=== PATIENT | male | born 1955 | race Caucasian/White ===

== ENCOUNTER → 2023-01-05 15:10 | Outpatient (BNVA) | payer MEDICARE, OTHER, SELFPAY | PROVIDERS: PCP Internal Medicine; Visit Provider Physician Assistant | DX: M54.42 Lumbago with sciatica, left side (principal) | CPT/HCPCS: 99212 ==

== ENCOUNTER 2023-10-11 14:45 | Outpatient (AMB) | payer MEDICARE, OTHER, SELFPAY ==
--- NOTE | 2023-10-11 15:13 | HO.SPINEOV ---
Intake Intake Visit Reasons: issues that will like to discuss Intake Note: Mr. Padilla is here today c/o ongoing pain. Lumber Carrier Operator Required: No Assessment & Plan Assessment & Plan (1) Back pain of lumbar region with sciatica: Code(s): M54.40 - Lumbago with sciatica, unspecified side Plan Mr Padilla is here today to follow-up. He has been having intermittent episodes of the burning pain along the left side of his foot. He is still able to go to the gym and walk for few miles a day. He gets on image seen at the gym which gives him a back massage that seems to give him almost total relief. He has been dealing with issues with bladder cancer and that has been giving him a significant amount of anxiety. Overall though, he seems to be doing well from the standpoint of his previous L5 laminotomy. His pain is really not affecting his quality of life it is more just an agitation that seems to give him anxiety. He does not have any weakness or numbness to report. He is going to go for a cortisone injection with Dr. Denson. We discussed the fact that he has a slight amount of anterior translation of L4 and L5 with standing on his previous x-rays at [place] [address] I suspect he may have slight degree of instability with movement but nothing that needs surgery or instrumentation. At this point I do not think there is really anything we need to do for him because his pain is not really on a level where it is affecting his quality of life. He can follow up with us on an as-needed basis. Total amount of time spent in this visit was 20 minutes in discussion of symptoms, lumbar x-ray imaging results and subsequent plan of care Jomar Colvin MD,PhD [facility] Coding Level of Care Code Est Pt Level 3 (60301) Diagnoses Back pain of lumbar region with sciatica M54.40
== END 2023-10-11 15:34 | disposition home or self-care (01) ==
PROVIDERS: PCP Internal Medicine; Visit Provider Physician Assistant
DX: M54.40 Lumbago with sciatica, unspecified side (principal)
CPT/HCPCS: 99213

== ENCOUNTER → 2023-10-11 14:45 | Outpatient (BNVA) | payer MEDICARE, OTHER, SELFPAY | PROVIDERS: PCP Internal Medicine; Visit Provider Physician Assistant | DX: M54.40 Lumbago with sciatica, unspecified side (principal) | CPT/HCPCS: 99212 ==

== ENCOUNTER 2025-08-21 09:16 | Outpatient (AMB) | payer MEDICARE, OTHER, SELFPAY ==
[2025-08-21 09:38] VITALS: BMI 26.5
--- NOTE | 2025-08-21 09:38 | A.PHYSOV_ITS ---
Vital Signs 08/21/25 09:38 Height 5 ft 11 in Weight 190 lb BMI 26.5 Intake Visit Reasons: eval for back injection Intake Note: Patient is a 69 year old male her for lumbar back pain. Patient would like to discuss having another injection. Operations Manager Station Required: No Allergies hydroxyzine Allergy (Unknown, Verified 08/21/25 09:40) Unknown HPI Comments Details: History of Present Illness The patient is a 69 year old male presenting for follow-up of chronic low back pain and requests a repeat epidural steroid injection. He reports that a previous injection provided excellent pain relief for about a year. His current flare-up began after he overdid it by bending over while working. Patient responded very well to left L5, S1 TFESI on 09/19/2024 with greater than 50% reduction of his pain for over a year. Patient's pain has returned despite performing his physician directed home exercise plan and using his medications as prescribed. He is requesting repeat injection. The patient's pain is primarily nocturnal, waking him up after a couple of hours of sleep when he lies down. He describes the pain as a burning sensation and also experiences a vibration feeling during the day. The sleep disruption is causing him to feel run down, which is a concern due to his history of cancer. The pain is located at the left L5-S1 level. He is taking two 100 mg gabapentin pills at bedtime for the pain. The patient has a history of high-grade bladder cancer diagnosed 2.5 years ago and receives BCG treatments. He undergoes regular surveillance cystoscopies and his urine cytology sometimes returns as atypical, which his urologist finds acce ptable. He also has an enlarged prostate, but a recent 20-core prostate biopsy was negative for cancer. His medical history includes kidney surgery and [facility] Pain Description - Onset and Timing: Pain is worse at night when lying down and wakes the patient from sleep after a couple of hours. - Quality and Character: Described as a burning sensation and a vibration. - Location and Radiation: Left-sided pain at the L5-S1 level, with burning previously felt down to the toe. - Exacerbating Factors: Lying down at night and bending over. - Relieving Factors: A previous epidural steroid injection provided relief for a full year. Getting up helps temporarily. A vibrating machine provides some relief for about 30 minutes. - Interference with Function: Primarily affects sleep. Results - Procedures: A recent 20-core prostate biopsy was negative for cancer, with no [place] score reported. - Blue light cystoscopy was negative. - Labs: Urine cytology has shown results ranging from suspicious for high-grade carcinoma to atypical, with the latter being considered acceptable by his urologist. ON LICENSE OF [facility] Surgical History History of cancer surgery History of back surgery Social History Alcohol intake: current Alcohol intake frequency: does not drink Patient Tobacco Use Status: Never used Tobacco Use of substances other than those prescribed or required for medical reasons: No Review of Systems Narrative Review of Systems - Neurological: Reports nocturnal burning pain in the back and leg, and a feeling of vibration during the day. - Musculoskeletal: Reports low back pain. - Constitutional: Reports feeling run down due to lack of sleep. - Psychiatric: Reports a history of PTSD and anxiety. - Sleep: Reports waking up after about two hours of sleep due to pain. - Genitourinary: Reports history of bladder cancer and post-procedural burning with urination for a couple of days after BCG treatments. Physical Exam Exam Exam: Physical Exam Lumbar Spine: Examination of his lumbar spine, there is no visible swelling or deformity. He is tender to lower lumbar facets. He is otherwise nontender. Full range of motion of his lumbar spine. He does have an increase in pain with facet loading. Special Tests: Lhermittes sign was negative Heel Toe walk is normal Left straight leg raise: Positive left Right straight leg raise: Negative Special tests Melissa test is negative Ganslen's test is negative SI Joint compression test negative Nena test negative Piriformis stretch is negative Lower Extremities: Full range of motion bilateral lower extremities. No calf pain or edema. Neuro: Sensation: Intact to lower extremities bilaterally Strength L2 (Psoas): 5/5 on the left and 5/5 on the right. L3 (Quads): 5/5 on the left and 5/5 on the right. L4 (Ant tibialis): 5/5 on the left and 5/5 on the right. L5 (EHL) 5/5 on the left and 5/5 on the right. S1 (Gastroc): 5/5 on the left and 5/5 on the right. DTR L4: (Patellar) Left 2 Right 2 S1: (Achilles) Left 2 Right 2 Babinski Downgoing No pathologic clonus. No involuntary movement. Vital Signs: BMI result Body Mass Index 26.5 Assessment & Plan Assessment & Plan (1) Lumbar radiculopathy: Code(s): M54.16 - Radiculopathy, lumbar region Category: Medical Plan Pain Management - Analgesia: The patient is currently taking gabapentin 200 mg at bedtime. - He experienced significant relief for a year from a previous left L5-S1 injection, which he wishes to repeat. - Affect: The patient states his lack of sleep due to pain is making him feel run down, which is a concern due to his ongoing cancer treatments and the need to maintain his immune system. - Activities of Daily Living: Sleep is significantly disrupted by nocturnal pain. - During the day, he can walk without problems. 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 - Adverse Effects: No adverse effects from current medications were discussed. - Aberrant Drug Related Behaviors: No aberrant behaviors were discussed. Plan Patient was informed and verbally consented to the use of an ambient scribe for clinic note documentation during this visit. 1. Chronic Low Back Pain With Left Radiculopathy The patient's nocturnal burning pain and sleep disturbance are consistent with his known lumbar radiculitis the left lower extremity recommend repeating the left L5, S1 TFESI and he is eager to proceed. We will obtain prior authorization for his injection contact him once we have done so.. He is currently on a very low dose of gabapentin 200 mg at bedtime. To manage his symp toms until an injection can be performed, the dose will be increased to 300-400 mg (three or four 100 mg tablets) at bedtime, which should help with both the nerve pain and sleep. He can also take one tablet during the day if needed. A repeat left L5-S1 epidural steroid injection will be ordered, as it provided significant relief previously. Prior authorization will be obtained from his insurance before scheduling the procedure. 2. History Of Bladder Cancer The patient is undergoing active surveillance and BCG treatments for high-grade bladder cancer. He will continue to follow up with his urology team for management. Discussion Notes I discussed with the patient his recurrent left-sided low back pain with radiculopathy, which is causing significant sleep disruption. We reviewed the excellent and prolonged relief he obtained from his previous left L5-S1 injection, and he is agreeable to repeating the procedure. As a bridging therapy until the injection, I recommended increasing his gabapentin, as his current dose of 200 mg nightly is very low. I advised he could increase to three or four 100 mg tablets at bedtime to help with nerve pain and sleep. I informed him the order for the injection would be placed today, and my office will seek insurance authorization before calling him to schedule. Patient Instructions - You can increase your gabapentin dose to help with your pain and sleep. - Take 3 or 4 of your 100 mg gabapentin pills before you go to bed. - You can also take one pill during the day if needed. - We are ordering a repeat injection for your back pain. - Our office will first need to get approval from your insurance company. - Once the injection is approved, we will call you to schedule it. - Please call our office if you need refills of your gabapentin. Coding Level of Care Code Est Pt Level 3 (78137) Diagnoses Lumbar radiculopathy M54.16
--- OUTSIDE RECORDS SUMMARY | 2025-08-21 09:49 | XMS_ITS | Encounter Summary ---
Author Organization [facility] Address [address] [place] [address] Phone Care Team Providers Care Residential Roofer Name Role Phone Ghazala Rogers MD Primary Care Provider [phone] Self-Referred, Patient Unavailable Unavailab le Encounter Details Date Type Department Care Team (Late st Contact Info) Description 12/31/2024 Procedure Pass [facility] [address] [place] [address] Social History Tobacco Use Types Packs/Day Years Used Date Smoking Tobacco: Never Smokeless Tobacco: Never Alcohol Use Standard Drinks/Week Comments Yes 0 (1 standard drink = 0.6 oz pur e alcohol) occassional beer Education Answer Date Recorded Are you interested in more education? Not on stacy e 01/02/2024 Are you concerned about learning? Not on file 01/02/2024 No 01/02/2024 No 01/02/2024 Digital Access Answer Date Recorded No 01/02/2024 No 01/02/2024 Reliable internet access at home? Not on file 01/02/2024 Device with a working camera? Not on file Intimate Partner Violence Answer Date R ecorded Are you denied basic needs s uch as food, clothing, or medical care? No 12/31/2024 In the past 12 months have y ou been in a relationship with a person who hurts, threatens, or tries to control you? No 12/31/2024 Are you denied basic needs s uch as food, clothing, or medical care? No 12/31/2024 In the past 12 months have y ou been in a relationship with a person who hurts, threatens, or tries to control you? No 12/31/2024 Sex and Gender Information Value Date Recorded Sex Assigned at Male 12/11/2023 11:55 AM EDT Legal Sex Male 11:44 AM EDT Gender Identity Male 12/11/2023 11:55 AM EDT Sexual Orientation Straight 01/12/2025 11 :19 AM EDT documented as of this encounter Plan of Treatment Upcoming Encounters Date Type Department Care Team (Late st Contact Info) Description 09/15/2025 10:30 AM EST Procedure visit [facility] [address] [place] [address] Kin Navarrete MD [address] [place] [address] [address] [place] [address] [email or web address] 09/23/2025 11:00 AM EST Nurse Only [facility] [address] [place] [address] Daylin Wilkes NP [address] [place] [address] 09/30/2025 11:00 AM EST Nurse Only [facility] [address] [place] [address] Daylin Wilkes NP [address] [place] [address] 10/07/2025 11:00 AM EST Nurse Only [facility] [address] [place] [address] Daylin Wilkes NP [address] [place] [address] documented as of this encounter Visit Diagnoses Not on filedocumented in this encounter Care Teams Residential Roofer Relationship Specialty Start Date End Date Ghazala Rogers MD [address] [place] [id number] PCP - General Internal Medicine 12/11/23 Self-Referred, Patient Referring Physician 01/12/25 documented as of this encounter Additional Source Comments The information contained in this document represents components of the legal health record. It is not the complete legal health record.[facility]
--- OUTSIDE RECORDS SUMMARY | 2025-08-21 09:49 | XMS_ITS | Encounter Summary ---
Author Organization [facility] Address [address] [place] [address] Phone Care Team Providers Care Assembler Garment Form Name Role Phone Ghazala Rogers MD Primary Care Provider [phone] Self-Referred, Patient Unavailable Unavailab le Encounter Details Date Type Department Care Team (Late st Contact Info) Description 02/12/2025 Procedure Pass [facility] 1[address] floor [address] [place] [address] Social History Tobacco Use Types Packs/Day Years Used Date Smoking Tobacco: Never Smokeless Tobacco: Never Alcohol Use Standard Drinks/Week Comments Not Currently 0 (1 standard drink = 0.6 oz pur e alcohol) occassional beer Child or Family Care Answer Date Record ed Do you have problems with on e of the following making it difficult for you to work, study, or receive health care? No 01/13/2025 Education Answer Date Recorded Are you interested in more education? Not on stacy e 01/02/2024 Are you concerned about learning? Not on file 01/02/2024 No 01/02/2024 No 01/02/2024 Food Answer Date Recorded Within the past 6 months we worried whether our food would run out before we got money to buy more. Never True 01/13/2025 Within the past 6 months the food we bought just didn't last and we didn't have enough money to get more. Never True Residential Stability Answer Date Recor ded Family situation today data Not on file 01/01 How many times have you move d in the past 12 months? Zero (I did not move) 01/13/2025 Paying for Meds Answer Date Recorded Do you have trouble paying for medicines? No 01/13/2025 Paying Utility Bills Answer Date Record ed Do you have trouble paying your heating or elect ricity bill? No 01/13/2025 Transportation Answer Date Recorded Has the lack of transportati on kept you from medical appointments or from getting medications? No 01/13/2025 Digital Access Answer Date Recorded No 01/02/2024 No 01/02/2024 Reliable internet access at home? Not on file 01/02/2024 Device with a working camera? Not on file Intimate Partner Violence Answer Date R ecorded Are you denied basic needs s uch as food, clothing, or medical care? No 02/12/2025 In the past 12 months have y ou been in a relationship with a person who hurts, threatens, or tries to control you? No 02/12/2025 Are you denied basic needs s uch as food, clothing, or medical care? No 02/12/2025 In the past 12 months have y ou been in a relationship with a person who hurts, threatens, or tries to control you? No 02/12/2025 Sex and Gender Information Value Date Recorded Sex Assigned at Male 12/11/2023 11:55 AM EDT Legal Sex Male 11:44 AM EDT Gender Identity Male 12/11/2023 11:55 AM EDT Sexual Orientation Straight 01/12/2025 11 :19 AM EDT documented as of this encounter Plan of Treatment Upcoming Encounters Date Type Department Care Team (Late st Contact Info) Description 09/15/2025 10:30 AM EST Procedure visit [facility] [address] [place] [address] Kin Navarrete MD [address] [address] [address] [place] [address] [email or web address] 09/23/2025 11:00 AM EST Nurse Only [facility] [address] [place] [address] Daylin Wilkes NP 1 [place] [address] 09/30/2025 11:00 AM EST Nurse Only [facility] [address] [place] [address] Daylin Wilkes NP [address] [place] [address] 10/07/2025 11:00 AM EST Nurse Only [facility] [address] [place] [address] Daylin Wilkes NP [address] [place] [address] documented as of this encounter Visit Diagnoses Not on filedocumented in this encounter Care Teams Assembler Garment Form Relationship Specialty Start Date End Date Ghazala Rogers MD [address] [place] [id number] PCP - General Internal Medicine 12/11/23 Self-Referred, Patient Referring Physician 01/12/25 documented as of this encounter Additional Source Comments The information contained in this document represents components of the legal health record. It is not the complete legal health record.[facility]
--- OUTSIDE RECORDS SUMMARY | 2025-08-21 09:49 | XMS_ITS | Encounter Summary ---
Author Organization [facility] Address [address] [place] [address] Phone Care Team Providers Care Chief Deputy Name Role Phone Ghazala Rogers MD Primary Care Provider Self-Referred, Patient Unavailable Unavailab le Encounter Details Date Type Department Care Team (Late st Contact Info) Description 11/25/2024 Procedure Pass [facility] [address] [address] Social History Tobacco Use Types Packs/Day Years [...] with a working camera? Not on file Sex and Gender Information Value Date Recorded [...] EST Procedure visit [facility] [address] [place] [address] Kin Navarrete MD [address] [address] [address] [place] [address] [email or web address] 09/23/2025 11:00 AM EST Nurse Only [facility] [address] [place] [address] Daylin Wilkes NP [address] [place] [address] 09/30/2025 11:00 AM EST Nurse Only [facility] [address] [place] [address] Daylin Wilkes NP [address] [place] [address] 10/07/2025 11:00 AM EST Nurse Only [facility] [address] [place] [address] Daylin Wilkes NP [address] [place] [address] documented as of this encounter Visit Diagnoses Not on filedocumented in this encounter Care Teams Chief Deputy Relationship Specialty Start Date End Date Ghazala Rogers MD [address] [place] [id number] PCP - General Internal Medicine 12/11/23 Self-Referred, Patient Referring Physician 01/12/25 documented as of this encounter Additional Source Comments The information contained in this document represents components of the legal health record. It is not the complete legal health record.[facility]
--- OUTSIDE RECORDS SUMMARY | 2025-08-21 09:50 | XMS_ITS | Clinical Summary ---
Author Organization [facility] Address [address] [place] [address] Care Team Providers Care Salesperson Handbags Name Role Phone Ghazala Kunz MD Primary Care Provider Surgical History Surgery Date Site/Laterality Comments COLONOSCOPY 2005 PROCEDURE: MS COLONOSCOPY STOMA DX INCLUDING COLLJ SPEC SPX; COMMENT: normal OTHER SURGICAL HISTORY 1974 PROCEDURE: MS OPEN [place] STERNUM FRACTURE W/WO SKELETAL FIXATION; COMMENT: jaw fracture, shoulder fracture, historical SHOULDER SURGERY 11/2015 Left PROCEDURE: HISTORICAL SHOULDER SURGERY; COMMENT: RTC left dr. henao BACK SURGERY 01/06/2022 PROCEDURE: HISTORICAL BACK SURGERY; COMMENT: dr. altamirano lumbar decompression Medical History Medical History Date Comments Essential hypertension, benign 10/26/05 D X:Essential hypertension, benign Eyelid abnormality 05/15/2012 DX:Eyelid abn ormality Shoulder strain 05/15/2012 DX:Shoulder stra in Actinic keratosis, hx of DX:Acti meeta keratosis, hx of HTN (hypertension) 07/02/2017 DX:HTN (hyper tension) History of actinic keratoses 08/04/2016 DX: History of actinic keratoses; COMMENT: Actinic keratoses Family History Medical History Relation Name Comments No Known Problems Brother paternal b rother No Known Problems Father No Known Problems Maternal Grandfather No Known Problems Maternal Grandmother Kidney cancer Mother No Known Problems Paternal Grandfather No Known Problems Paternal Grandmother Suicide Attempts Sister 1 No Known Problems Sister 2 No Known Problems Sister 3 maternal s ister Drug abuse Son Blindness Neg Hx Cataracts Neg Hx Macular degeneration Neg Hx Other cancer Neg Hx Strabismus Neg Hx Relation Name Status Comments Brother Alive Father Maternal Grandfather Maternal Grandmother Mother Paternal Grandfather Paternal Grandmother Sister 1 Sister 2 Alive Sister 3 Alive Son Social History Tobacco Use Types Packs/Day Years Used Date Smoking Tobacco: Never Smokeless Tobacco: Never Alcohol Use Standard Drinks/Week Comments Yes 0 (1 standard drink = 0.6 oz pur e alcohol) Sex and Gender Information Value Date Recorded Sex Assigned at Not on file Legal Sex Male 2:50 PM EST Gender Identity Not on file Sexual Orientation Not on file Last Filed Vital Signs Vital Sign Reading Time Taken Comments Blood Pressure - - Pulse - - Temperature - - Respiratory Rate - - Oxygen Saturation - - Inhaled Oxygen Concentration - - Weight 87.1 kg (192 lb) 01/31/2022 2:05 PM EDT Height 180.3 cm (5' 11 ) 12/20/2021 10:47 AM EDT Body Mass Index 26.78 12/20/2021 10:47 AM EDT Plan of Treatment Health Maintenance Due Date Last Done Comments Colorectal Cancer Screening: Colonoscopy 1955 Pneumococcal Vaccine: 50+ Years (1 of 1 - PCV) 2004 Abdominal Aortic Aneurysm (AAA) Screen 08/12/2022 Cholesterol Screening (Lipid Panel) 08/12/2022 Falls Risk Assessment 08/12/2022 Hepatitis C Screening 08/12/2022 Hypertension/CHF/CAD Annual BMP Blood Test 08/12/2022 Social Influencers of Health Screening 08/12/2022 DTaP,Tdap,and Td Vaccines (2 - Td or Tdap) 01/09/2023 01/09/2013 Depression Screening 09/03/2024 COVID-19 Vaccine (4 - 2024-2 6 season) 2025 07/13/2021, 11/01/2020, 10/11/2020 Influenza Vaccine (#1) 2025 , 06/26/2007 RSV Immunization Adult Patients (1 - 1-dose 75+ series) 2029 Zoster Vaccines Completed 08/12/2020, 04/20/2020, 09/22/2015 HIB Vaccines Aged Out No longer eligi ble based on patient's age to complete this topic HPV Vaccines Aged Out No longer eligi ble based on patient's age to complete this topic Hepatitis A Vaccines Aged Out No long er eligible based on patient's age to complete this topic Hepatitis B Vaccines Aged Out No long er eligible based on patient's age to complete this topic IPV Vaccines Aged Out No longer eligi ble based on patient's age to complete this topic MMR Vaccines Aged Out No longer eligi ble based on patient's age to complete this topic Meningococcal ACWY Vaccine Aged Out N o longer eligible based on patient's age to complete this topic Meningococcal B Vaccine Aged Out No l onger eligible based on patient's age to complete this topic RSV Immunization Patients Under 20 months Aged Out No longer eligible b ased on patient's age to complete this topic Varicella Vaccines Aged Out No longer eligible based on patient's age to complete this topic Care Teams Salesperson Handbags Relationship Specialty Start Date End Date Ghazala Kunz MD PCP - General 10/31/22
--- OUTSIDE RECORDS SUMMARY | 2025-08-21 09:50 | XMS_ITS | Encounter Summary ---
Author Organization [facility] Address [address] [place] [address] Phone Care Team Providers Care Confectionery Maker Name Role Phone Ghazala Rogers MD Primary Care Provider [phone] Self-Referred, Patient Unavailable Unavailab le Encounter Details Date Type Department Care Team (Late st Contact Info) Description 12/26/2024 Ancillary Orders [facility] [place], Theodore [address] [place] [address] Ej Hong MD [address] [place] [address] [email or web address] Bladder tumor (Primary Dx) Social History Tobacco Use Types Packs/Day Years [...] Description 09/15/2025 10:30 AM EST Procedure visit [facility] [address] [place] [address] Kin Navarrete MD [address] [place] [address] [address] [place] [address] [email or web address] 09/23/2025 11:00 AM EST Nurse Only [facility] [address] [place] [address] Daylin Wilkes NP 1 [place] [address] 09/30/2025 11:00 AM EST Nurse Only [facility] [address] [place] [address] Daylin Wilkes NP 1 [place] [address] 10/07/2025 11:00 AM EST Nurse Only [facility] [address] [place] [address] Daylin Wilkes NP 1 [place] [address] documented as of this encounter Results * [place] Fluoroscopy Guidance - No Charge (12/31/2024 2:43 PM EDT) 12/31/2024 7:55 PM EDT Narrative [facility] - 12/31/2024 7:55 PM EDT Dose (mGy): 9.8 Fluoro time (min): 45 secs Number of Spot Films: 51 Procedure Note Guide Foreign Tour, Dictation - 12/31/2024 Dose (mGy): 9.8 Fluoro time (min): 45 secs Number of Spot Films: 51 Ej Hong MD IMG [place] EXAMS Final Result [address] [address] documented in this encounter Visit Diagnoses Diagnosis Bladder tumor- Primary Neoplasm of unspecified nature of bladder Bladder tumor Neoplasm of unspecified nature of bladder documented in this encounter Care Teams Confectionery Maker Relationship Specialty Start Date End Date Ghazala Rogers MD [address] [place] [address] PCP - General Internal Medicine 12/11/23 Self-Referred, Patient Referring Physician 01/12/25 documented as of this encounter Additional Source Comments The information contained in this document represents components of the legal health record. It is not the complete legal health record.[facility]
--- OUTSIDE RECORDS SUMMARY | 2025-08-21 09:50 | XMS_ITS | Encounter Summary ---
Author Organization [facility] Address [address] [place] [address] Phone Care Team Providers Care Director Stars Name Role Phone Ghazala Rogers MD Primary Care Provider [phone] Self-Referred, Patient Unavailable Unavailab le Encounter Details Date Type Department Care Team (Late st Contact Info) Description 01/10/2024 Procedure Pass [facility] [place] [address] [facility], 2nd Floor, [address] [place] [address] Social History Tobacco Use Types Packs/Day Years Used Date Smoking Tobacco: Never Assessed Education Answer Date Recorded Are you interested [...] Description 09/15/2025 10:30 AM EST Procedure visit [facility] [address] [place] [address] Kin Navarrete MD [address] [place] [address] [address] [place] [address] [email or web address] 09/23/2025 11:00 AM EST Nurse Only [facility] [address] [place] [address] Daylin Wilkes NP 1 [place] [address] 09/30/2025 11:00 AM EST Nurse Only [facility] [address] [place] [address] Daylin Wilkes NP [address] [place] [address] 10/07/2025 11:00 AM EST Nurse Only [facility] [address] [place] [address] Daylin Wilkes NP [address] [place] [address] documented as of this encounter Visit Diagnoses Not on filedocumented in this encounter Care Teams Director Stars Relationship Specialty Start Date End Date Ghazala Rogers MD [address] [place] [address] PCP - General Internal Medicine 12/11/23 Self-Referred, Patient Referring Physician 01/12/25 documented as of this encounter Additional Source Comments The information contained in this document represents components of the legal health record. It is not the complete legal health record.[facility]
--- OUTSIDE RECORDS SUMMARY | 2025-08-21 09:50 | XMS_ITS | Encounter Summary ---
Author Organization [facility] Address [address] [place] [address] Phone Care Team Providers Care Vice President Client Services Name Role Phone Ghazala Rogers MD Primary Care Provider [phone] Self-Referred, Patient Unavailable Unavailab le Encounter Details Date Type Department Care Team (Late st Contact Info) Description 01/21/2025 Procedure Pass [facility] [address] [place] [address] Social History Tobacco Use Types Packs/Day Years [...] as food, clothing, or medical care? No 01/21/2025 In the past 12 months have y ou been in a relationship with a person who hurts, threatens, or tries to control you? No 01/21/2025 Are you denied basic needs s uch as food, clothing, or medical care? No 01/21/2025 In the past 12 months have y ou been in a relationship with a person who hurts, threatens, or tries to control you? No 01/21/2025 Sex and Gender Information Value Date Recorded Sex Assigned at Male 12/11/2023 11:55 AM EDT Legal Sex Male 11:44 AM EDT Gender Identity Male 12/11/2023 11:55 AM EDT Sexual Orientation Straight 01/12/2025 11 :19 AM EDT documented as of this encounter Plan of Treatment Upcoming Encounters Date Type Department Care Team (Late st Contact Info) Description 09/15/2025 10:30 AM EST Procedure visit [facility] [address] [place] [address] Kin Navarrete MD [address] [address] 109 [place] [address] [email or web address] 09/23/2025 11:00 AM EST Nurse Only [facility] [address] [place] [address] Daylin Wilkes NP 1 [place] [address] 09/30/2025 11:00 AM EST Nurse Only [facility] [address] [place] [address] Daylin Wilkes NP 1 [place] [address] 10/07/2025 11:00 AM EST Nurse Only [facility] [address] [place] [address] Daylin Wilkes NP 1 [place] [address] documented as of this encounter Visit Diagnoses Not on filedocumented in this encounter Care Teams Vice President Client Services Relationship Specialty Start Date End Date Ghazala Rogers MD [address] [place] [address] PCP - General Internal Medicine 12/11/23 Self-Referred, Patient Referring Physician 01/12/25 documented as of this encounter Additional Source Comments The information contained in this document represents components of the legal health record. It is not the complete legal health record.[facility]
--- OUTSIDE RECORDS SUMMARY | 2025-08-21 09:50 | XMS_ITS | Clinical Summary ---
Author Organization [facility] Address [address] [place] [address] Phone Care Team Providers Care Hosiery Mender Name Role Phone Ghazala Rogers MD Primary Care Provider [phone] Self-Referred, Patient Unavailable Unavailab le Allergies No known active allergies Medications lisinopril (PRINIVIL,ZESTR IL) 10 MG tablet Take 10 mg by mouth daily. Active cholecalciferol (VITAMIN D3) 25 MCG (1,000 unit) tablet Take 1,000 Units by mouth daily. Active mirtazapine (REMERON) 15 MG tablet Take 15 mg by mouth. 12/09/2024 Active alfuzosin (UROXATRAL) 10 mg 24 hr tablet Take 1 tablet (10 mg total) by mouth nightly at bedtime. 90 tablet 3 02/03/2025 Active Active Problems Problem Noted Date Diagnosed Date Anxiety 12/23/2024 Atypical chest pain 12/23/2024 Enlarged prostate without urinary obstruction Borderline hypercholesterolemia 12/23/2024 Hypertension 12/23/2024 Malignant neoplasm of urinary bladder 12/23/2024 Overview (12/23/2024): s/p BCG therapy s/p transurethral resection of bladder tumor (2-5cm) Nephrolithiasis 12/23/2024 Spinal stenosis of lumbar region 12/23/2024 Overview (12/23/2024): Follows with Dr Denson Physiatry Encounters Date Type Department Care Team Description 06/08/2025 Telephone [facility] [address] [place] [address] Daylin Wilkes NP 06/08/2025 Telephone [facility] [address] [place] [address] Daylin Wilkes NP 06/01/2025 8:13 AM EDT - 06/01/2025 11:59 PM EDT Hospital Encounter [facility] [address] [place] [address] Kin Navarrete MD Discharge Disposition: Home or Self Care from Last 3 Months Social History Tobacco Use Types Packs/Day Years Used Date Smoking Tobacco: Never Smokeless Tobacco: Never Tobacco Cessation:Counseling Given: Not Answered Alcohol Use Standard Drinks/Week Comments Not Currently [...] Orientation Straight 01/12/2025 11 :19 AM EDT Last Filed Vital Signs Vital Sign Reading Time Taken Comments Blood Pressure 141/85 02/12/2025 1:56 PM EDT Pulse 77 02/12/2025 1:56 PM EDT Temperature 36.5 C (97.7 F) 02/12/2025 2:15 PM EDT Respiratory Rate 21 02/12/2025 1:56 PM EDT Oxygen Saturation 99% 02/12/2025 1:56 PM EDT Inhaled Oxygen Concentration - - Weight 87.5 kg (193 lb) 02/12/2025 9:58 AM EDT Height 180.3 cm (5' 11 ) 02/12/2025 9:58 AM EDT Body Mass Index 26.92 02/12/2025 9:58 AM EDT Plan of Treatment Upcoming Encounters Date Type Department Care Team (Late st Contact Info) Description 09/15/2025 10:30 AM EST Procedure visit [facility] [address] [facility] [address] [place] [address] Kin Navarrete MD [address] [place] [address] [email or web address] 09/23/2025 11:00 AM EST Nurse Only [facility] [address] [place] [address] Daylin Wilkes NP [address] [place] [address] 09/30/2025 11:00 AM EST Nurse Only [facility] [address] [place] [address] Daylin Wilkes NP [address] [place] [address] [email or web address] 10/07/2025 11:00 AM EST Nurse Only [facility] [address] [place] [address] Daylin Wilkes NP [address] [place] [address] [email or web address] Health Maintenance Due Date Last Done Comments BLOOD PRESSURE 1954 LIPID PANEL 1954 DEPRESSION SCREENING 1966 HEPATITIS C SCREENING 1972 COLOGUARD 1999 COLONOSCOPY 1999 COLORECTAL CANCER SCREENING 1999 FIT TEST 1999 FOBT 1999 SIGMOIDOSCOPY 1999 VIRTUAL COLONOSCOPY 1999 PNEUMOCOCCAL VACCINES (50+ years) (2 of 2 - PCV) 04/16/2021 04/16/2020 INFLUENZA VACCINE (#1) 2025 , 08/01/2023, 07/11/2021, Additional history exists COVID-19 VACCINE ( - season) 2025 07/13/2021, 07/01/2021, 11/01/2020, Additional history exists CREATININE LEVEL 02/02/2026 02/02/2025, 01/10/2024 POTASSIUM LEVEL 02/02/2026 02/02/2025 RSV VACCINE (1 - 1-dose 75+ series) 2029 Adult Td,Tdap Booster 06/15/2033 06/15/2023 , 01/09/2013, 11/07/2002 ZOSTER VACCINES Completed 08/12/2020, 04/03, 09/22/2015 SMOKING STATUS SCREENING (Once After 26 Yrs) Completed 02/03/2025 HEPATITIS A VACCINES Aged Out No long er eligible based on patient's age to complete this topic HIB VACCINES Aged Out No longer eligi ble based on patient's age to complete this topic MENINGOCOCCAL VACCINES (ACWY) Aged Out No longer eligible based on patient's age to complete this topic MENINGOCOCCAL VACCINES (B) Aged Out N o longer eligible based on patient's age to complete this topic Medical Devices Implanted Type Area Outpatient Facility Physical Therapist Device Identifier Shelf Expiration Date Model / Serial / Lot Hardware Shoulders 2 Dental Implants Procedures Procedure Name Priority Date/Time Associated Diagnosis Comments NON-AC/DC REWINDER CYTOLOGY, URINE/URINARY TRACT Routine 06/01/2025 8:17 AM EDT Carcinoma of bladder NON-AC/DC REWINDER CYTOLOGY, NON CSF, NON URINE Routine 06/01/2025 12:00 AM EDT BASIC METABOLIC PANEL (BMP) Routine 02/02/2025 9:37 AM EDT Malignant neoplasm of overlapping sites of bladder from Last 3 Months or Most Recently Relevant to Health Maintenance Results * Urine cytology order (06/01/2025 8:17 AM EDT) Cytology Order Status Specimen received in Cytology Lab for processing. [facility] Urine 06/01/2025 8:17 AM EDT 06/01/2025 8:19 AM EDT us Kin Navarrete MD URINE ORDERABLES Final Res ult [facility] [address] [place] [id number] * Non-Wire Machine Operator Cytology (06/01/2025 12:00 AM EDT) Report [address] [address] Wax Ball Molder: Ori Whitley MD Non Wire Machine Operator Cytology Report FINAL DIAGNOSIS A. VOIDED URINE: SPECIMEN ADEQUACY: Satisfactory for evaluation. INTERPRETATION: ATYPICAL. Atypical urothelial cells. Electronically Signed Out By: JAGDISH Josue MD(ASCP) By his/her signature above, the pathologist listed as making the Final Diagnosis certifies that he/she has personally reviewed this case and confirmed or corrected the diagnosis. CLINICAL HISTORY Patient presents with a history of high grade urothelial carcinoma. SPECIMEN SOURCE A: VOIDED URINE GROSS DESCRIPTION A. VOIDED URINE: Received fresh is 17ml of clear pale yellow fluid labeled with patient's name and date of . One (1) ThinPrep slide is prepared. Patient Name: RODGER PADILLA : 1955 (Age: 69) Sex: M Institution: [facility] Location: [facility] Date of Collection: 06/01/2025 Date of Reported: 06/02/2025 15:25 Results to: Kin Navarrete MD [facility] Clinical History Patient presents with a history of high grade urothelial carcinoma. [facility] Final Diagnosis A. VOIDED URINE: SPECIMEN ADEQUACY: Satisfactory for evaluation. INTERPRETATION: ATYPICAL. Atypical urothelial cells. [facility] Gross Description A. VOIDED URINE: Received fresh is 17ml of clear pale yellow fluid labeled with patient's name and date of . One (1) ThinPrep slide is prepared. [facility] Conversion Type (Urine, Voided) 06/01/2025 06/01/2025 2:32 PM EDT Kin Navarrete MD CYTOLOGY ORDERABLES Edited Result - Final [address] [address] * Basic metabolic panel (02/02/2025 9:37 AM EDT) SODIUM 135 133 - 146 mmol/L [facility] CHLORIDE 100 96 - 108 mmol/L [facility] POTASSIUM 4.3 3.3 - 5.1 mmol/L [facility] CO2 28 21 - 35 mmol/L [facility] BUN 16 6 - 19 mg/dL [facility] CREATININE 1.00 0.5 - 1.5 mg/dL [facility] GLUCOSE 99 70 - 99 mg/dL [facility] CALCIUM 9.7 8.4 - 10.3 mg/dL [facility] EGFR 81 >59 mL/min/1.7 3m2 [facility] Comment:Estimated glomerular filtration rate calculated using the CKD-EPI refit equation. ANION GAP 11 10 - 20 mmol/L [facility] Blood 02/02/2025 9:37 AM EDT 02/02/2025 9:42 AM EDT us Jeet Martinez MD, MPH LAB BLOOD BKR ORDERABLES Final Result Performing Organization Address City/State/[facility] Co de Phone Number [address] [address] from Last 3 Months or Most Recently Relevant to Health Maintenance Insurance MEDICARE PART A & B Member Subscriber Plan / Payer (Ef fective 2019-Present) Name:Rodger Padilla Member ID:[id number] Relation to Subscriber:Self Name:Rodger Padilla Subscriber ID:[id number] Payer ID:[id number] Group ID:Not on file Type:Medicare Address: [facility] Comply Serve [facility] [address] [facility] [place] [address] [facility] MEDICARE SUPPLEMENT MEDICARE PART A & [place] [place] [address] [employer] MEDICARE SUPPLEMENT MEDICARE PART A & B [facility] EXT[employer]ION MEDICARE SUPPLEMENT MEDICARE PART A & B [facility] EXT[employer]ION MEDICARE SUPPLEMENT MEDICARE PART A & B [facility] EX[employer]ENSION MEDICARE SUPPLEMENT MEDICARE PART A & B [facility] [employer] MEDICARE SUPPLEMENT Care Teams Hosiery Mender Relationship Specialty Start Date End Date Ghazala Rogers MD [address] [place] [address] PCP - General Internal Medicine 12/11/23 Self-Referred, Patient Referring Physician 01/12/25 Additional Source Comments The information contained in this document represents components of the legal health record. It is not the complete legal health record.[facility]
--- OUTSIDE RECORDS SUMMARY | 2025-08-21 09:50 | XMS_ITS | Encounter Summary ---
Author Organization [facility] Address [address] [place] [address] Phone Care Team Providers Care Patrol Deputy Sheriff Name Role Phone Ghazala Rogers MD Primary Care Provider [phone] Self-Referred, Patient Unavailable Unavailab le Encounter Details Date Type Department Care Team (Late st Contact Info) Description 11/05/2024 Procedure Pass [facility], Ct Scan - [address] [address] Social History Tobacco Use Types Packs/Day Years [...] Description 09/15/2025 10:30 AM EST [facility] [address] [facility] [address] [place] [address] Kin Navarrete MD [address] [place] [address] [address] [place] [address] [email or web address] 09/23/2025 11:00 AM EST Nurse Only [facility] [address] [place] [address] Daylin Wilkes NP [address] [place] [address] 09/30/2025 11:00 AM EST Nurse Only [facility] [address] [place] [address] Daylin Wilkes NP [address] [place] [address] 10/07/2025 11:00 AM EST Nurse Only [facility] [address] [place] [address] Daylin Wilkes NP [address] [place] [address] documented as of this encounter Visit Diagnoses Not on filedocumented in this encounter Care Teams Patrol Deputy Sheriff Relationship Specialty Start Date End Date Ghazala Rogers MD [address] [place] [address] PCP - General Internal Medicine 12/11/23 Self-Referred, Patient Referring Physician 01/12/25 documented as of this encounter Additional Source Comments The information contained in this document represents components of the legal health record. It is not the complete legal health record.[facility]
== END 2025-08-21 09:58 | disposition home or self-care (01) ==
LOC: HO.HPHYS 09:16
PROVIDERS: PCP Internal Medicine; Visit Provider Physician Assistant
DX: M54.16 Radiculopathy, lumbar region (principal)
CPT/HCPCS: 99213

== ENCOUNTER → 2025-08-21 09:16 | Outpatient (BNVA) | payer MEDICARE, OTHER, SELFPAY | PROVIDERS: PCP Internal Medicine; Visit Provider Physician Assistant | DX: M54.16 Radiculopathy, lumbar region (principal); M54.59 Other low back pain; Z85.51 Personal history of malignant neoplasm of bladder | CPT/HCPCS: 99212 ==